=== PATIENT | male | born 1985 | race Caucasian/White ===

== ENCOUNTER 2016-12-02 19:02 | Emergency (ER) | payer OTHER ==
[~2016-12-02] VITALS: Ht 175.3 cm; Wt 82.0 kg
[2016-12-02 19:12] VITALS: BP 154/87
[2016-12-02] MEDS ORDERED: KETOROLAC 30 MG/ML VIAL (J1885) IV ONE (19:45)
[2016-12-02] MEDS ORDERED: LR 1,000 ML IV ONE (19:45)
== END 2016-12-02 20:51 | disposition home or self-care (01) ==
LOC: EDBD 19:02 → M ED 19:02
DX: S49.92XA Unspecified injury of left shoulder and upper arm, initial encounter (principal); T22.292A Burn of second degree of multiple sites of left shoulder and upper limb, except wrist and hand, initial encounter; T20.00XA Burn of unspecified degree of head, face, and neck, unspecified site, initial encounter; T20.07XA Burn of unspecified degree of neck, initial encounter; T31.0 Burns involving less than 10% of body surface; X03.8XXA Other exposure to controlled fire, not in building or structure, initial encounter; Y92.098 Other place in other non-institutional residence as the place of occurrence of the external cause; Y93.89 Activity, other specified; Y99.9 Unspecified external cause status
CPT/HCPCS: 96374; 96375; 99283; J1885

== ENCOUNTER → 2017-07-29 | Outpatient (REF) | payer OTHER ==
[2017-07-29 19:11] LABS: % NORMAL FORMS 8 % (>=4); IMMOTILITY 54 %; NON PROGRESSIVE MOTILITY (c) 11 %; PROGRESSIVE MOTILITY (a) 35 % (>=32); SEMEN APPEARANCE OPAQUE (OPAQUE); SEMEN VISCOSITY LIQUID (LIQUID); SEMEN VOLUME 4.1 ml (4.0-5.0); SPERM CONCENTRATION 67.4 M/ml (>=15.0); TOTAL MOTILITY 46 % (>=40); WBC CONCENTRATION <=1 M/ml (<=1 M/ml)
[2017-07-29 19:12] LABS: SPERM# 276.5 M/Ejac (>=39); TOTAL FUNCTIONAL 18.4 M/Ejac.; TOTAL PROGRESSIVE SPERM 97.5 M/Ejac.
== END ==
LOC: M LAB REF 18:08
DX: Z79.52 Long term (current) use of systemic steroids (principal)